=== PATIENT | female | born 1950 | race Caucasian/White ===

== ENCOUNTER 2017-09-10 09:13 | Emergency (ER) | payer MEDICARE ==
--- OUTSIDE RECORDS SUMMARY | 2017-09-10 09:23 | XMS REPORT ---
:1950 External Reference #:[id number] Author Organization [facility] Address [address] [address] Phone [phone] Care Team Providers Name Role Phone Jigar Ivey MD Primary Care Physician Unavailable Payers Type Date Identification Numbers Payment Provider Subscriber Medicare Primary Effective: Policy Number: Medicare Cristiana Ramsey 2014 [id number] PayID: [id number] [address] [place] [address] Medigap Part B Effective: Policy Number: [facility] Cristiana Ramsey 2014 [id number] Healthcare PayID: [id number] [address] [place] [address] Medigap Part B Effective: Policy Number: [facility] Junie Clark 2012 [id number] Ppo Expires: 2013 PayID: [id number] [address] [address] [place] [address] Medigap Part B Expires: 2012 Policy Number: [facility] Cristiana Ramsey [id number] Care ([place]) PayID: [id number] [address] [place] [address] Medigap Part B Expires: Policy Number: [facility] Cristiana Ramsey 2012 [id number] [facility] Name: Medicare [address] [address] [place] [address] Advance Directives Type Date Description Status Comment Other Directive Health Care Proxy Current and Verified Problems Date Description Provider Status Onset: 04/30/2007 Osteoporosis Jose Ryan M.D.,FACP Onset: 04/30/2007 Heart murmur Jose Ryan M.D.,FACP Onset: 04/30/2007 Idiopathic scoliosis AND/OR Jose Ryan kyphoscoliosis Nicolas,FACP Onset: 04/30/2007 Female climacteric state Jose Ryan M.D.,FACP Onset: 10/23/2015 Lumbosacral radiculitis Jose Ryan M.D.,NIGELP Note: L4-5 Onset: 09/27/2016 Mixed hyperlipidemia Jose Ryan M.D.,FACP Onset: 09/27/2016 Monoclonal gammopathy of Jose Ryan uncertain significance Nicolas,NIGELP Family History Date Family Member(s) Problem(s) Comments General Stroke General Cancer General Heart Disease Father due to Cancer () - head/neck Mother Cancer, Lung Mother due to Cancer, Lung () First Brother Heart Disease First Sister Osteoporosis Social History Type Date Description Comments Marital Status Significant Other Occupation Parer Occupation Retired Cigarette Use Never Smoked Cigarettes ETOH Use 02/20/2015 consumes 2-3 glasses of wine per week Recreational Drug Use Denies Drug Use Smoking Patient has never smoked General Hx Text none Allergies, Adverse Reactions, Alerts Date Description Reaction Status Severity Comments 02/05/2008 Codeine active cry 02/14/2017 Fosamax active palpitation/esophagitis Medications Medication Date Status Form Strength Qnty SIG Indications Ordering Provider Vitamin D 02/04/ Active Capsules 400Unit 1 PO bid Jigar Ivey M.D.,FACP Centrum / Active Tablets once daily Unknown Silver Ultra 0000 Womens Vitamin B / Active Tablets 1month follow Unknown Complex 0000 ss directions on bottle, take daily. (minimum of 50 mg of thiamine per day) Flax Seed Oil / Active Capsules 1000mg 1 po qd Unknown 0000 Acidophilus / Active Tablets 1 by mouth Unknown 0000 every day Vitamin C / Active Capsules 500mg 1 by mouth Unknown 0000 every day Calcium + D / Active Tablets 315-200mg- 2 by mouth Unknown 0000 Unit every day Glucosamine / Active Capsules 1500Com 1 by mouth Unknown 1500 Complex 0000 daily.. Glucosamine 10/22/ Hx Capsules 500mg 1 cap by Jigar Dunaway 2015 - mouth every D. Loni, 08/29/ day M.D.,FACP 2018 Doxycycline 10/22/ Hx Capsules 100mg 42caps si bid x 088.81 Mark- David Monohydrate 2014 - 21 days Valeria Ivey, 10/22/ M.D.,FACP 2014 Miralax 03/14/ Hx Powder [id number] 238G 1 cap full 564.09 Iman 2013 - po qd prn, Simba, 09/19/ dissolve in N.P. 2014 4-8 oz of liquid Doxycycline 10/31/ Hx Tablets 100mg 20tabs take one tab E906.4 Negrita Monohydrate 2013 - po bid x 10 [place] 10/31/ days tson, N.P. 2012 Doxycycline 10/31/ Hx Capsules 100mg 20caps take one E906.4 Negrita Hyclate 2013 - pill twice [facility] 03/14/ daily for 10 tson, N.P. 2012 days Alendronate 11/12/ Hx Tablets 70mg 12tabs 1 po weekly 733.00 Jigar Sodium 2010 - DOrly Ievy, 10/31/ M.D.,FACP 2012 Debrox 10/28/ Hx Solution 6.5% 1bottl 5 drops in 380.4 Jigar 2010 - e each ear DOrly Ivey, 12/21/ every 3 M.D.,FACP 2010 months Calcium 600 02/04/ Hx Tablets 600mg 1 PO bid Jigar 2007 Violeta Ivey, 09/06/ M.D.,FACP 2017 Glucosamine-C 02/04/ Hx Capsules 500-400 bid PO Jigar abad 2007 Violeta Ivey, 10/22/ M.D.,FACP 2014 Vitamin E / Hx Capsules 200Unit 1 po qod Unknown 0000 - 2014 Immunizations CPT Code Status Date Vaccine Lot # [id number] Given 02/14/2017 Pneumonia Vaccine [id number] 48814 Given 09/19/2014 Pneumococcal Conjugate Vaccine 13 Valent For [id number] Intramuscular Use 14758 Given 02/21/2012 Tdap - Tetanus/Diptheria/Acellular Pertussis [id number] Vital Signs Date Vital Result Comment 09/06/2017 Height 61 inches 5'1" Weight 125.00 lb Heart Rate 74 /min BP Systolic 116 mmHg BP Diastolic 74 mmHg Respiratory Rate 16 /min BMI (Body Mass Index) 23.6 kg/m2 04/20/2017 Weight 128.00 lb Heart Rate 75 /min BP Systolic Sitting 142 mmHg BP Diastolic Sitting 80 mmHg Body Temperature 96.4 F O2 % BldC Oximetry 97 % 02/14/2017 Height 61 inches 5'1" Weight 125.75 lb Heart Rate 67 /min BP Systolic Sitting 130 mmHg BP Diastolic Sitting 70 mmHg Body Temperature 97.6 F O2 % BldC Oximetry 98 % BMI (Body Mass Index) 23.8 kg/m2 09/27/2016 Weight 126.00 lb Heart Rate 75 /min BP Systolic 124 mmHg BP Diastolic 68 mmHg Body Temperature 98.0 F O2 % BldC Oximetry 96 % 06/17/2016 Weight 123.25 lb Heart Rate 72 /min BP Systolic Sitting 128 mmHg BP Diastolic Sitting 74 mmHg Body Temperature 97.6 F O2 % BldC Oximetry 98 % 10/23/2015 Height 60.5 inches 5'0.50" Weight 129.00 lb Heart Rate 60 /min BP Systolic Sitting 120 mmHg BP Diastolic Sitting 76 mmHg Body Temperature 97.6 F O2 % BldC Oximetry 98 % BMI (Body Mass Index) 24.8 kg/m2 02/20/2015 Height 61.25 inches 5'1.25" Weight 130.00 lb Heart Rate 60 /min BP Systolic Sitting 130 mmHg BP Diastolic Sitting 73 mmHg Body Temperature 97.5 F O2 % BldC Oximetry 98 % BMI (Body Mass Index) 24.4 kg/m2 10/22/2014 Height 61.25 inches 5'1.25" Weight 126.50 lb Heart Rate 80 /min BP Systolic Sitting 108 mmHg BP Diastolic Sitting 72 mmHg Body Temperature 97.7 F O2 % BldC Oximetry 96 % BMI (Body Mass Index) 23.7 kg/m2 09/19/2014 Height 61.25 inches 5'1.25" Weight 129.00 lb Heart Rate 74 /min BP Systolic Sitting 122 mmHg BP Diastolic Sitting 68 mmHg O2 % BldC Oximetry 96 % BMI (Body Mass Index) 24.2 kg/m2 03/14/2013 Height 61.25 inches 5'1.25" Weight 128.50 lb Heart Rate 72 /min BP Systolic Sitting 124 mmHg BP Diastolic Sitting 68 mmHg Body Temperature 98.8 F BMI (Body Mass Index) 24.1 kg/m2 10/31/2012 Height 61.25 inches 5'1.25" Weight 130.75 lb Heart Rate 76 /min BP Systolic Sitting 132 mmHg BP Diastolic Sitting 76 mmHg BMI (Body Mass Index) 24.5 kg/m2 01/20/2012 Weight 126.00 lb Heart Rate 68 /min BP Systolic Sitting 130 mmHg BP Diastolic Sitting 82 mmHg Body Temperature 97.5 F lt ear 11/12/2010 Weight 129.00 lb Heart Rate 64 /min BP Systolic Sitting 122 mmHg BP Diastolic Sitting 72 mmHg 10/28/2010 Weight 131.00 lb Heart Rate 70 /min BP Systolic Sitting 124 mmHg BP Diastolic Sitting 82 mmHg 02/05/2008 Height 62 inches 5'2" Weight 131.00 lb Heart Rate 60 /min BP Systolic Sitting 126 mmHg BP Diastolic Sitting 68 mmHg BMI (Body Mass Index) 24.0 kg/m2 04/30/2007 Height 62 inches 5'2" Weight 127.00 lb Heart Rate 70 /min BP Systolic Sitting 132 mmHg BP Diastolic Sitting 80 mmHg BMI (Body Mass Index) 23.2 kg/m2 Results Test Date Test Result H/L Range Note Comp Metabolic Panel 10/03/2016 Sodium 139 mmol/L 133-145 Potassium 3.7 mmol/L 3.5-5.0 Chloride 103 mmol/L 101-111 Co2 Carbon Dioxide 29 mmol/L 22-32 Anion Gap 7 mmol/L 2-11 Glucose 95 mg/dL 70-100 Blood Urea Nitrogen 15 mg/dL 6-24 Creatinine 0.61 mg/dL 0.51-0.95 BUN/Creatinine Ratio 24.6 High 8-20 Calcium 9.1 mg/dL 8.6-10.3 Total Protein 6.8 g/dL 6.4-8.9 Albumin 3.8 g/dL 3.2-5.2 Globulin 3.0 g/dL 2-4 Albumin/Globulin Ratio 1.3 1-3 Total Bilirubin 0.40 mg/dL 0.2-1.0 Alkaline Phosphatase 64 U/L 34-104 Alt 16 U/L 7-52 Ast 23 U/L 13-39 Egfr Non- 97.8 >60 Egfr 125.8 >60 1 Lipid Profile (Trig/Chol/HDL) 10/03/2016 Triglycerides 103 mg/dL 2 Cholesterol 241 mg/dL 3 HDL Cholesterol 66.3 mg/dL 4 LDL Cholesterol 154 mg/dL 5 Protein Electrophoresis 10/03/2016 Total Protein(Pep) 7.2 g/dL 6.3 - 7.9 Albumin 3.2 g/dL 3.4-4.7 Alpha-1 Globulin 0.2 g/dL 0.1-0.3 Alpha-2 Globulin 1.1 g/dL 0.6-1.0 Beta Globulin 1.0 g/dL 0.7-1.2 Gamma Globulin 1.7 g/dL 0.6-1.6 Albumin/Globulin Ratio 0.80 Impression See Comment 6 Laboratory test finding 10/03/2016 TSH (Thyroid Stim Horm) 3.00 mcIU/mL 0.34-5.60 7 CBC Auto Diff 10/03/2016 White Blood Count 5.2 10^3/uL 3.5-10.8 Red Blood Count 4.71 10^6/uL 4.0-5.4 Hemoglobin 13.7 g/dL 12.0-16.0 Hematocrit 41 % 35-47 Mean Corpuscular Volume 87 fL 80-97 Mean Corpuscular Hemoglobin 29 pg 27-31 Mean Corpuscular HGB Conc 34 g/dL 31-36 Red Cell Distribution Width 13 % 10.5-15 Platelet Count 259 10^3/uL 150-450 Mean Platelet Volume 8 um3 7.4-10.4 Abs Neutrophils 2.5 10^3/uL 1.5-7.7 Abs Lymphocytes 2.2 10^3/uL 1.0-4.8 Abs Monocytes 0.4 10^3/uL 0-0.8 Abs Eosinophils 0 10^3/uL 0-0.6 Abs Basophils 0 10^3/uL 0-0.2 Abs Nucleated RBC 0 10^3/uL Granulocyte % 49.3 % 38-83 Lymphocyte % 41.9 % 25-47 Monocyte % 7.5 % 1-9 Eosinophil % 0.7 % 0-6 Basophil % 0.6 % 0-2 Nucleated Red Blood Cells % 0 Laboratory test finding 02/23/2015 [place] (Antinuclear Negative Negative Antibodies) Protein Electrophoresis 02/23/2015 Immunofixation See Comment 8 Total Protein(Pep) 7.1 g/dL 6.3 - 7.9 Albumin 3.4 g/dL 3.4-4.7 Alpha-1 Globulin 0.2 g/dL 0.1-0.3 Alpha-2 Globulin 1.0 g/dL 0.6-1.0 Beta Globulin 1.1 g/dL 0.7-1.2 Gamma Globulin 1.4 g/dL 0.6-1.6 Albumin/Globulin Ratio 0.92 Impression See Comment 9 Laboratory test finding 02/23/2015 Vitamin B12 786 pg/mL 180-914 10 Erythrocyte Sed Rate 22 mm/Hr 0-40 Methylmalonic Acid Mma 0.24 nmol/mL <=0.40 11 Laboratory test finding 10/22/2014 Lyme Disease Serology Negative Negative 12 Lipid Profile 10/15/2014 Triglycerides 144 mg/dL 13, 14 (Trig/Chol/HDL) Cholesterol 212 mg/dL 13, 15 HDL Cholesterol 52.6 mg/dL 13, 16 LDL Cholesterol 131 mg/dL 13, 17 Comp Metabolic Panel 10/15/2014 Sodium 139 mmol/L 133-145 13 Potassium 4.3 mmol/L 3.5-5.0 13 Chloride 103 mmol/L 101-111 13 Co2 Carbon Dioxide 32 mmol/L 22-32 13 Anion Gap 4 mmol/L 2-11 13 Glucose 77 mg/dL 70-100 13 Blood Urea Nitrogen 9 mg/dL 6-24 13 Creatinine 0.52 mg/dL 0.51-0.95 13 BUN/Creatinine Ratio 17.3 8-20 13 Calcium 9.1 mg/dL 8.6-10.3 13 Total Protein 6.8 g/dL 6.4-8.9 13 Albumin 4.0 g/dL 3.2-5.2 13 Globulin 2.8 g/dL 2-4 13 Albumin/Globulin Ratio 1.4 1-3 13 Total Bilirubin 0.30 mg/dL 0.2-1.0 13 Alkaline Phosphatase 51 U/L 34-104 13 Alt 13 U/L 7-52 13 Ast 17 U/L 13-39 13 Egfr Non- 118.3 >60 13 Egfr 152.2 >60 13, 18 Laboratory test finding 10/15/2014 Vitamin D Total 41.2 ng/mL 30-50 13, 19 25(Oh) CBC Auto Diff 10/15/2014 White Blood Count 4.9 10^3/uL 4.8-10.8 13 Red Blood Count 4.58 10^6/uL 4.0-5.4 13 Hemoglobin 13.8 g/dL 12.0-16.0 13 Hematocrit 41 % 35-47 13 Mean Corpuscular Volume 91 fL 80-97 13 Mean Corpuscular Hemoglobin 30 pg 27-31 13 Mean Corpuscular HGB Conc 33 g/dL 31-36 13 Red Cell Distribution Width 14 % 10.5-15 13 Platelet Count 273 10^3/uL 150-450 13 Mean Platelet Volume 9 um3 7.4-10.4 13 Abs Neutrophils 2.4 10^3/uL 1.5-7.7 13 Abs Lymphocytes 1.9 10^3/uL 1.0-4.8 13 Abs Monocytes 0.4 10^3/uL 0-0.8 13 Abs Eosinophils 0 10^3/uL 0-0.6 13 Abs Basophils 0 10^3/uL 0-0.2 13 Abs Nucleated RBC 0 10^3/uL 13 Granulocyte % 50.1 % 38-83 13 Lymphocyte % 39.5 % 25-47 13 Monocyte % 9.1 % High 1-9 13 Eosinophil % 0.9 % 0-6 13 Basophil % 0.4 % 0-2 13 Nucleated Red Blood Cells % 0 13 Human Papilloma 03/15/2013 Human Papillomavirus Source See Comment 20 Human Papillomavirus High Risk Negative Negative 21 Ua Routine 03/14/2013 Ua Specific [place] 1.005 Ua PH 6.0 Ua Color yellow Ua Appera clear Ua WBC neg Ua Protein neg Ua Glucose neg Ua Ketones neg Ua Bilirubin neg Ua Urobilinogen neg Ua Nitrite neg Ua Occult Blood moderate Urine Culture And 03/14/2013 Urine Culture (SEE NOTE) 22 Sensitivities Laboratory test finding 03/14/2013 Cytology RUN DATE: <SEE NOTE> Surgical Pathology 11/23/2012 S RUN DATE: <SEE NOTE> Laboratory test finding 02/21/2012 Glucose 76 mg/dL 70-100 Lipid Profile 02/21/2012 Triglyceride 197 mg/dL 40-200 (Trig/Chol/HDL) Cholesterol 242 mg/dL High Less Than 200 25 High Density Lipoprotein 56 mg/dL 40-60 26 Cholesterol/HDL Ratio 4.32 AVERAGE 1-4.44 Low Density Lipoprotein 147 mg/dL High Less Than 100 27 Vitamin D, 25 Hydroxy 11/02/2010 25-Hydroxy Vitamin D2 <4.0 ng/mL () 25-Hydroxy Vitamin D3 43 ng/mL () 25-Hydroxy Vitamin D Total 43 ng/mL () 28 Lipid Profile (Trig/Chol/HDL) 11/02/2010 Triglyceride 107 mg/dL 40-200 Cholesterol 241 mg/dL High Less Than 200 29 High Density Lipoprotein 53 mg/dL 40-60 30 Cholesterol/HDL Ratio 4.55 AVERAGE High 1-4.44 Low Density Lipoprotein 167 mg/dL High Less Than 100 31 Basic Metabolic Panel 11/02/2010 Sodium 139 mmol/L 135-145 Potassium 4.3 mmol/L 3.5-5.0 Chloride 103 mmol/L 101-111 Co2 (Carbon Dioxide) 30.0 mmol/L 22-32 Anion Gap 6.0 mmol/L 2-11 32 Glucose 82 mg/dL 70-100 BUN 11 mg/dL 6-24 Creatinine 0.50 mg/dL 0.50-1.40 One Over Creatinine 2.00 BUN/Creatinine Ratio 22.0 High 8-20 Calcium 9.0 mg/dL 8.1-9.9 eGFR Non- 125.4 > 60 eGFR 161.3 > 60 33 Laboratory test 10/28/2010 Cytology 34 finding <SEE NOTE> Vad 10/28/2010 Vad Final NONREACTIVE Nonreactive 35 Laboratory test 04/03/2007 Vitamin D, 25 33.3 NG/ML 20-100 36 finding Hydroxy Laboratory test 04/03/2007 TSH 1.33 MIU/ML 0.34-5.60 finding 1 Because ethnic data is not always readily available, this report includes an eGFR for both -Americans and non- Americans. The National Kidney Disease Education Program (NKDEP) does not endorse the use of the MDRD equation for patients that are not between the ages of 18 and 70, are , have extremes of body size, muscle mass, or nutritional status, or are non- or non-. According to the National Kidney Foundation, irrespective of diagnosis, the stage of the disease is based on the level of kidney function: Stage Description GFR(mL/min/1.73 m(2)) 1 Kidney damage with normal or decreased GFR 90 2 Kidney damage with mild decrease in GFR 60-89 3 Moderate decrease in GFR 30-59 4 Severe decrease in GFR 15-29 5 Kidney failure <15 (or dialysis) 2 Desirable <150 Borderline high 150-199 High 200-499 Very High >500 3 Desirable <200 Borderline high 200-239 High >239 4 Low <40 Desirable: 40-60 High: >60 5 Desirable: <100 mg/dL Near Optimal: 100-129 mg/dL Borderline High: 130-159 mg/dL High: 160-189 mg/dL Very High: >189 mg/dL 6 Small abnormality in gamma fraction. Polyclonal hypergammaglobulinemia Test Performed by: [place] [address] 7 FASTING 10 HOUR 8 Small monoclonal IgG kappa within the gamma fraction. Suggest repeat testing in 6-12 months if clinically indicated. Test Performed by: [place] [address] Chuck Wagon Driver: Ritchie Dennison II, M.D., Ph.D. 9 Small abnormality in gamma fraction. See Immunofixation. Test Performed by: [place] [address] [employer] Wagon Driver: Ritchie Dennison II, M.D., Ph.D. 10 Normal Range 180 to 914 Indeterminate Range 145 to 180 Deficient Range <145 11 Test Performed by: [place] [address] [employer] Wagon Driver: Ritchie Dennison II, M.D., Ph.D. 12 Serologic response to B. burgdorferi infection is not detected, but cannot rule out early infection during which low or undetectable antibody levels to B. burgdorferi may be present. If clinically indicated, a new serum specimen should be submitted in 7-14 days. Test Performed by: [address] [address] Chuck Wagon Driver: Ritchie Dennison II, M.D., Ph.D. 13 FA STING 10 HOUR FASTING 10 HOUR FASTING 10 HOUR FASTING 10 HOUR FASTING 10 HOUR FASTING 10 HOUR FASTING 10 HOUR 14 Desirable <150 Borderline high 150-199 High 200-499 Very High >500 15 Desirable <200 Borderline high 200-239 High >239 16 Low <40 Desirable: 40-60 High: >60 17 Desirable: <100 mg/dL Near Optimal: 100-129 mg/dL Borderline High: 130-159 mg/dL High: 160-189 mg/dL Very High: >189 mg/dL 18 Because ethnic data is not always readily available, this report includes an eGFR for both -Americans and non- Americans. The National Kidney Disease Education Program (NKDEP) does not endorse the use of the MDRD equation for patients that are not between the ages of 18 and 70, are , have extremes of body size, muscle mass, or nutritional status, or are non- or non-. According to the National Kidney Foundation, irrespective of diagnosis, the stage of the disease is based on the level of kidney function: Stage Description GFR(mL/min/1.73 m(2)) 1 Kidney damage with normal or decreased GFR 90 2 Kidney damage with mild decrease in GFR 60-89 3 Moderate decrease in GFR 30-59 4 Severe decrease in GFR 15-29 5 Kidney failure <15 (or dialysis) 19 FASTING 10 HOUR 20 RESULT: Ectocervical/Endocervical 21 For types 16, 18, 31, 33, 35, 39, 45, 51, 52, 56, 58, 59 and 68. Test Performed by: [place] [address] Chuck Wagon Driver: Alvarez Recinos III, M.D. 22 RUN DATE: 03/16/13 [facility] LAB LIVE PAGE 1 RUN TIME: [address] [place], [place] [address] Specimen Inquiry Name: CRISTIANA RAMSEY : [address]: Iman Cottrell NP Acct: [id number] Unit: [id number] AGE: 63 Location: [facility] Re03/14/13 SEX: F Status: REG REF SPEC: [id number] DOMI: 03/14/13-[address]: Iman Cottrell NP REQ: [id number] RECD: 03/14/13 STATUS: COMP _ SOURCE: URINE SPDESC: ORDERED: Urine Culture QUERIES: [facility] Number [id number] Procedure Result Verified Site Urine Culture Final 03/16/13- 1046 ML No Growth Day 2 (<1,000 CFU/mL) END OF REPORT * ML=Testing performed at Main Lab DEPARTMENT OF PATHOLOGY, [address] [place] [address] Royce Escamilla M.D. Director [facility] Permit #[id number] RUN DATE: 03/15/13 [facility] LAB LIVE PAGE 1 RUN TIME: [address] [place], [place] [address] Specimen Inquiry Name: HAMMADCRISTIANA E : [address]: Iman Cottrell NP Acct: [id number] Unit: [id number] AGE: 63 Location: [facility] Re03/14/13 SEX: F Status: REG REF SPEC: [id number] DOMI: 03/14/13-1607 [facility] DR: Iman Cottrell NP REQ: [id number] RECD: 03/14/13090 STATUS: SOUT _ ORDERED: IMAGE ANALYSIS, PAP SM PATH REV, HPV/Thin Prep FINAL DIAGNOSIS Please Repeat COMMENTS: Specimen sent to [facility] [employer] in [place], [place] on 03/15/13 by [id number] at 1413. Results will be reported separately. A. Ectocervical/Endocervical Specimen Adequacy: Unsatisfactory for evaluation Insufficient epithelial component Patient Information: HPV: High risk HPV DNA testing regardless of pap results. Actual Specimen Date: 03/14/13 IUD: N Lesion, grossly demonstrate: N ?: N Post Menopausal?: Y Hysterectomy?: N Previous Abnormal Pap Smears?:N Signed (signature on file) Hui Shaw MD 09/22 1714 This Pap test was evaluated with the assistance of the ThinPrep Test Imaging System. Due to cytologic findings at the roads and parking lots sweeper operator microscope, comprehensive manual rescreening by a Principal Software Engineer may be required. The Pap Smear is a screening test designed to aid in the detection of premalignant and malignant conditions of the uterine cervix. It is not a diagnostic procedure and should not be used as the sole means of detecting cervical cancer. Both false- positive and false- negative reports do occur. Depending on your risk status, a Pap smear shoudl be obtained and evaluated every 1-3 years. END OF REPORT * ML=Testing performed at Main Lab DEPARTMENT OF PATHOLOGY, [facility] [place], [place] [address] Royce Escamilla M.D. Director [facility] Permit #[id number] RUN DATE: 11/27/12 [facility] LAB LIVE PAGE 1 RUN TIME: 2960 [facility] [employer] [place], [place] [address] Specimen Inquiry Name: CRISTIANA RAMSEY : [address]: Camilo Mclean MD Acct: [id number] Unit: [id number] AGE: 62 Location: [facility] Re11/23/12 SEX: F Status: REG REF SPEC: [id number] DOMI: 11/23/12- SUBM DR: Camilo Mclean MD REQ: [id number] RECD: 11/26/12-1444 STATUS: SHAYE ORTIZ DR: Jigar Ivey MD _ ORDERED: LEVEL IV FINAL DIAGNOSIS Colon, 20 cm., biopsy: Hyperplastic polyp. CLINICAL HISTORY Routine screening colonscopy POST-OPERATIVE DIAGNOSIS Screening colonoscopy to mid transverse colon - mild diverticulosis, 2 mm. polyp removed at 20 cm. GROSS DESCRIPTION The specimen is received in formalin labeled Cristiana Ramsey, Colon Polyp at 20 cm., and consists of hamilton, soft tissue fragments measuring 0.5 x0.3 x 0.1 cm. Submitted entirely, one cassette. Signed (signature on file) Royce Escamilla MD 1354 END OF REPORT * ML=Testing performed at Main Lab DEPARTMENT OF PATHOLOGY, [address] [place] [address] Royce Escamilla M.D. Director [facility] Permit #[id number] 25 CHOLESTEROL INTERPRETATION: Desirable: Less than 200 MG/DL Borderline-High Risk: 200-239 MG/DL High-Risk: 240 MG/DL and over 26 HDL INTERPRETATION: Undesirable: High Risk: Less than 40 MG/DL Desirable: Low Risk: Greater than 60 MG/DL 27 LDL INTERPRETATION: Low Risk Optimal Level: LDL Less than 100 MG/DL Near or Above Optimal: LDL 100-129 MG/DL Borderline High Risk: LDL 130-159 MG/DL High Risk: LDL 160-189 MG/DL Very High Risk: LDL Greater than 189 MG/DL 28 -- REFERENCE VALUE -- 25-HYDROXY D TOTAL (D2+D3) Optimum levels in the normal population are 25-80 Test Performed by: [facility] Dpt of Lab Med and Pathology [address] [place] [address] Chuck Wagon Driver: Alvarez Recinos III, M.D. 29 CHOLESTEROL INTERPRETATION: Desirable: Less than 200 MG/DL Borderline-High Risk: 200-239 MG/DL High-Risk: 240 MG/DL and over 30 HDL INTERPRETATION: Undesirable: High Risk: Less than 40 MG/DL Desirable: Low Risk: Greater than 60 MG/DL 31 LDL INTERPRETATION: Low Risk Optimal Level: LDL Less than 100 MG/DL Near or Above Optimal: LDL 100-129 MG/DL Borderline High Risk: LDL 130-159 MG/DL High Risk: LDL 160-189 MG/DL Very High Risk: LDL Greater than 189 MG/DL 32 Anion gap measurement may be of limited value in the presence of any alkalosis, especially in a combined acid base disorder. . 33 Because ethnic data is not always readily available, this report includes an eGFR for both -Americans and non- Americans. The National Kidney Disease Education Program (NKDEP) does not endorse the use of the MDRD equation for patients that are not between the ages of 18 and 70, are , have extremes of body size, muscle mass, or nutritional status, or are non- or non-. According to the National Kidney Foundation, irrespective of diagnosis, the stage of the disease is based on the level of kidney function: Stage Description GFR(mL/min/1.73 m(2)) 1 Kidney damage with normal or decreased GFR 90 2 Kidney damage with mild decrease in GFR 60-89 3 Moderate decrease in GFR 30-59 4 Severe decrease in GFR 15-29 5 Kidney failure <15 (or dialysis) 34 ---- RUN DATE: 10/29/10 [facility] NMI LIVE PAGE 1 RUN TIME: 1547 Specimen Inquiry RUN USER: INTERFACE -- Name: CRISTIANA RAMSEY Status: REG REF Re10/28/10 Age/Sex: 60/F Unit#: [id number] Location: [facility] : [birth year] -- Specimen: [id number] SOUT Spec Date: 10/28/[address]: Iman shipman NP Spec Type: CYTOLOGY Received: 10/29/10-1250 Copies to: SOURCE ECTOCERVICAL/ENDOCERVICAL Thin Prep with Reflex HPV Test PATIENT INFORMATION ACTUAL COLLECTION DATE: 10/28/10 ? No POST MENOPAUSAL? Yes HYSTERECTOMY? No PREVIOUS ABNORMAL PAP SMEARS No PATIENT HISTORY: Last menstrual period > 11 yrs ago ADEQUACY OF SPECIMEN Satisfactory for evaluation * Transformation zone component cannot be definitely identified due to prese nce * of atrophy or other hormonal changes. * DIAGNOSIS NEGATIVE FOR INTRAEPITHELIAL LESION OR MALIGNANCY * This Pap test was evaluated with the assistance of the StudyBluePrep Pap Test Imaging System. The Pap Smear is a screening test designed to aid in the detection of premalign ant and malignant conditions of the uterine cervix. It is not a diagnostic procedure a nd should not be used as the sole means of detecting cervical cancer. Both false- positiv e and false-negative reports do occur. Depending on your risk status, a Pap smear cris uld be obtained and evaluated every one to three years. Initial evaluation performed by González BENNETT([facility]) 10/29/10 Final Interpretation electronically signed by: González BENNETT([facility]) 10/29/10 1547 -- DEPARTMENT OF PATHOLOGY, [address] [place] [address] [facility] Permit #[id number] Royce Escamilla M.D. Director Neil Hunter M.D. Sales Representative [employer] Dir spike -- 35 FINAL INTERPRETATION: No HIV antibody is detected. . This information has been disclosed to you from confidential records which are protected by [facility] law. State law prohibits you from making further disclosure of this information without the specific written consent of the person to whom it pertains, or as otherwise permitted by law. Any unauthorized further disclosure in violation of state law may result in a fine or snf sentence or both. General authorization for the release of medical or other information is not, except in limited circumstances set forth in Part 63, Title 10, of [facility], sufficient authorization for further disclosure. Disclosure of confidential HIV information that occurs as the result of a general authorization for the release of medical or other information will be in violation of the state law and may result in a fine or a snf sentence. . 36 INTERPRETIVE GUIDELINES FOR VITAMIN D (25-HYDROXY): >100 NG/ML (>250 NMOL/L) . . . POTENTIAL TOXICITY 32-100 NG/ML (80-250 NMOL/L) . SUFFICIENCY 20-32 NG/ML (50-80 NMOL/L) . . MILD INSUFFICIENCY 10-20 NG/ML (25-50 NMOL/L) . . MODERATE INSUFFICIENCY 7-10 NG/ML (17.5-25 NMOL/L) . MARKED INSUFFICIENCY <7 NG/ML (<17.5 NMOL/L) . . . DEFICIENCY NOTE: RANGES OBSERVED IN SELECTED POPULATIONS VARY CONSIDERABLY AND A SIGNIFICANT PORTION OF ASYMPTOMATIC PERSONS, PARTICULARLY ELDERLY AND THOSE WITH LIMITED SUN EXPOSURE WILL HAVE VITAMIN D INSUFFICIENCY ASSOCIATED WITH ELEVATED INTACT PARATHYROID HORMONE (INTACT PTH) LEVELS AND ELEVATED RISK OF OSTEOPOROSIS. SERUM LEVELS ABOVE 32 NG/ML (80 NMOL/L) HAVE BEEN RECOMMENDED FOR OPTIMIZING BONE HEALTH WHEREAS LEVELS BELOW 10 NG/ML (25 NMOL/L) ARE ASSOCIATED WITH A SIGNIFICANT RISK OF OSTEOMALACIA. TEST PERFORMED BY: [employer] [id number] [place] [address] NOTE: NEW REFERENCE RANGE OF 10/31/06 Procedures Date CPT Code Description Status 05/11/2017 08189 ECHO Transthorasic Realtime 2D W Doppler & Color Completed Flow Hosp 11/13/2015 Mammogram Completed 05/01/2015 44563 Nerve Conduction 03-04 Studies Completed 05/01/2015 26892 Needle Electromyography Each Extremity W/Related Completed Paraspinal Areas 10/08/2014 Bone Mineral Density Test Completed 10/08/2014 Mammogram Completed 05/13/2013 Mammogram Completed 11/23/2012 Colonoscopy Completed 11/04/2010 Bone Mineral Density Test Completed 11/04/2010 Mammogram Completed 04/29/2003 11932 Transesophageal Echocardiogram Completed 04/10/2003 33660 Stress Test Completed 04/09/2003 92613 Color Doppler Completed 04/09/2003 98970 Pulse Doppler & Continuous Wave Completed 04/09/2003 54357 Echocardiogram Completed Encounters Type Date Location Provider CPT E/M Dx Office Visit 09/06/2017 [facility] Mya Balderas M.D. 18299 R41.89 9:00a [facility] F41.9 R94.02 Office Visit 04/20/2017 1:40p [facility] Medicine Jigar Ivey, 93596 R41.3 - [place] Albert Valenzuela,FACP R01.1 Office Visit 02/14/2017 11:30a [facility] Medicine Jigar Ivey, 82365 Z00.01 - Anthony Valenzuela,FACP E78.2 M81.0 Z23 Office Visit 09/27/2016 4:40p [facility] Medicine Jigar Ivey, 81905 R53.83 - Anthony Valenzuela,FACP R41.3 D47.2 Office Visit 06/17/2016 4:20p [facility] Internal Jigar Ivey, 14449 M25.511 Medicine - [place] Albert Valenzuela,FACP H61.23 Office Visit 02/20/2015 8:40a [facility] Internal Jigar Ivey, 13003 356.8 Medicine - [place] Albert Valenzuela,FACP Office Visit 10/22/2014 10:10a [facility] Internal Jigar Ivey, 68430 088.81 Medicine - [place] Albert Valenzuela,FACP 733.00 Office Visit 03/14/2013 3:30p [facility] Internal Medicine Iman Cottrell, N.P. 51745 V76.10 - Cassandra 788.41 564.09 599.70 V72.31 V76.2 Office Visit 10/31/2012 2:00p [facility] Internal Negrita Littlejohn, 33550 E906.4 Medicine - N.P. Anthony 910.4 Office Visit 01/20/2012 4:30p [facility] Internal Medicine Iman Cottrell, N.P. 94080 V76.51 - Cassandra V77.91 V77.1 V06.1 719.48 Office Visit 11/12/2010 9:40a DO Not Use [facility], 41491 733.00 [facility] Nicolas,FACP Office Visit 10/28/2010 2:30p DO Not Use [facility], N.P. 54266 V76.2 [facility] V76.10 V76.51 V72.31 380.4 Office Visit 02/05/2008 10:00a DO Not Use [facility], 22778 840.4 [facility] BeaValeria,FACP 268.9 Office Visit 04/30/2007 3:40p DO Not Use [facility], 38987 733.00 [facility] 785.2 737.30 627.2 Plan of Care Future Appointment(s):04/27/2018 10:00 am - Mya Balderas M.D. at [facility]09/06/2017 - Mya Balderas M.D.R41.89 Oth symptoms and signs w cognitive functions and awarenessNew Xrays:MRI Brain W/ ORecommendations:Keep hydrated. Most people need 8 hours sleep. Watch to see if you need naps. Exercise is foss in preventing cognitive decline. Anxiety, PTSD can affect cognition. Highly suggest counseling. Socialization and volunteer work can be helpful. Agree to be careful to choose how you do this, so you do not increase stress. Pace yourself.F41.9 Anxiety disorder, pvjxqagrdtuS79.02 Abnormal brain scanNew Xrays:MRI Brain W/OComments:there is some atrophy (expected) and some nonspecific white matter changes - these can be caused risk factors including, but not limited to high cholesterol, high blood pressure, diabetes, smoking, sleep apnea. 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 (30 min)
[2017-09-10 09:24] VITALS: BP 112/64
--- NOTE | 2017-09-10 09:50 | UC ---
Complaint Female HPI - HPI Summary HPI Summary: Patient c/o intense itching in vulvar and vaginal area for close to a week, she used miconazale 3 and finished treatment 4 days ago but continues having pruritus. States that there was no vaginal discharge and that the only change was increased intake of bread in the past month. Denies sexual intercourse, changes in detergent or fabric of clothing, dysuria or abnormal urine or bleeding. Occasionally has mixed incontinence during the winter. - History Of Current Complaint Chief Complaint: UCGU Stated Complaint: VAGINAL IRRITATION Time Seen by Provider: 09/10/17 09:28 Pain Intensity: 0 - Allergies/Home Medications Allergies/Adverse Reactions: Allergies Allergy/AdvReac Type Severity Reaction Status Date / Time codeine Allergy unk Verified 09/10/17 09:15 PMH/Surg Hx/FS Hx/Imm Hx Previously Healthy: Yes - Surgical History Surgical History: Yes Surgery Procedure, Year, and Place: spinal fusion for scoliosis 1965. RIGHT SIDE OF HEAD ABOVE EAR TO REMOVE BONE GROWTH. - Social History Alcohol Use: Weekly Substance Use Type: None Smoking Status (MU): Never Smoked Tobacco Review of Systems Genitourinary: Vaginal/Penile Burning All Other Systems Reviewed And Are Negative: Yes Physical Exam Triage Information Reviewed: Yes Appearance: Well-Appearing, No Pain Distress, Well-Nourished Vital Signs: Initial Vital Signs Temp 98 F 09/10/17 09:21 Pulse 69 09/10/17 09:21 Resp 16 09/10/17 09:21 BP 112/64 09/10/17 09:21 Pulse Ox 100 09/10/17 09:21 Vital Signs Reviewed: Yes Eyes: Positive: Conjunctiva Clear Dental Exam: Normal Neck: Positive: Supple, Nontender Respiratory: Positive: Chest non-tender Cardiovascular: Positive: Pulses Normal, Brisk Capillary Refill Abdomen Description: Positive: Nontender, No Organomegaly, Soft Pelvic Exam: Positive: Bimanual Exam Normal, No Cerv. Motion Tender, No Masses - no vulvar lesions, no vaginal d/c, mucosa with mild atrophy, no cervical lesions, no CMT, adnexa non palpable, small uterus Complaint Female Dx - Course Course Of Treatment: continue miconazol cream every night, start diflucan 150mg po once, vaginal sample sent for laboratory analysis, limit amount of yeast in diet - Differential Dx/Diagnosis Provider Diagnoses: Hiwot vulvovaginitis Discharge - Sign-Out/Discharge Documenting (check all that apply): Discharge, Post-Discharge Follow Up - Discharge Plan Condition: Stable Disposition: HOME Patient Education Materials: Vaginitis (ED) Referrals: Jigar Ivey MD [Primary Care Provider] - - Billing Disposition and Condition Condition: STABLE Disposition: HOME
== END 2017-09-10 10:03 | disposition home or self-care (01) ==
LOC: UCEAST 09:13
DX: B37.3 Candidiasis of vulva and vagina (principal); Z88.5 Allergy status to narcotic agent
CPT/HCPCS: 87480; 87510; 87660; 99212; G0463

== ENCOUNTER 2017-12-12 19:55 | Emergency (ER) | payer MEDICARE ==
--- OUTSIDE RECORDS SUMMARY | 2017-12-12 20:04 | XMS REPORT ---
:1950 External Reference #:[id number] Author Organization [facility] Address [address] [place] [address] Phone [phone] Care Team Providers Name Role Phone Jigar Ivey MD Primary Care Physician Unavailable Payers Type Date Identification Numbers Payment Provider Subscriber Medicare Primary Effective: Policy Number: Medicare Cristiana Ramsey 2014 [id number] PayID: [id number] [address] [place] [address] Medigap Part B Effective: Policy Number: [place] Cristiana Ramsey 2014 [id number] Healthcare PayID: [id number] [address] [place] [address] Medigap Part B Effective: Policy Number: [place] Brenden Junie Clark 2012 [id number] Ppo Expires: 2013 PayID: [id number] [address] [address] [place] [address] Medigap Part B Expires: 2012 Policy Number: [facility] Cristiana Ramsey [id number] Care ([place]) PayID: [id number] [address] [place] [address] Medigap Part B Expires: Policy Number: [facility] Cristiana Ramsey 2012 [id number] [facility] Name: Medicare [address] [address] [place] [address] Advance Directives Type Date Description Status Comment Other Directive Health Care Proxy Current and Verified Problems Date Description Provider Status Onset: 04/30/2007 Heart murmur Jose Ryan M.D.,FACP Onset: 04/30/2007 Idiopathic scoliosis AND/OR Jigar Ivey Active kyphoscoliosis Nicolas,FACP Onset: 04/30/2007 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 Loni, 10/22/ M.D.,FACP 2014 Miralax 03/14/ Hx Powder [id number] 238G 1 cap full 564.09 Iman 2013 - po qd prn, Simba, 09/19/ dissolve in N.P. 2014 4-8 oz of liquid Doxycycline 10/31/ Hx Tablets 100mg 20tabs take one tab E906.4 Negrita Monohydrate 2013 - po bid x 10 [facility] 10/31/ days tson, N.P. 2012 Doxycycline 10/31/ Hx Capsules 100mg 20caps take one E906.4 Negrita Hyclate 2013 - pill twice [facility] 03/14/ daily for 10 tson, N.P. 2012 days Alendronate 11/12/ Hx Tablets 70mg 12tabs 1 po weekly 733.00 Jigar Sodium 2010 - Valeria Ivey, 10/31/ M.D.,FACP 2012 Debrox 10/28/ Hx Solution 6.5% 1bottl 5 drops in 380.4 Jigar 2010 - e each ear Valeria Ivey, 12/21/ every 3 M.D.,FACP 2010 months Calcium 600 02/04/ Hx Tablets 600mg 1 PO bid Jigar 2007 Violeta Ivey, 09/06/ M.D.,FACP 2017 Glucosamine-C 02/04/ Hx Capsules 500-400 bid PO Jigar abad 2007 Violeta Ivey, 10/22/ M.D.,FACP 2014 Vitamin E / Hx Capsules 200Unit 1 po qod Unknown 0000 - 2014 Immunizations CPT Code Status Date Vaccine Lot # [id number] Given 02/14/2017 Pneumonia Vaccine [id number] Given 09/19/2014 Pneumococcal Conjugate Vaccine 13 Valent For [id number] Intramuscular Use [id number] Given 02/21/2012 Tdap - Tetanus/Diptheria/Acellular Pertussis [id number] Vital Signs Date Vital Result Comment 12/11/2017 Height 61 inches 5'1" Weight 126.00 lb Heart Rate 75 /min BP Systolic Sitting 122 mmHg BP Diastolic Sitting 76 mmHg Body Temperature 98.4 F O2 % BldC Oximetry 95 % BMI (Body Mass Index) 23.8 kg/m2 09/06/2017 Height 61 inches 5'1" Weight 125.00 [...] Test Date Test Result H/L Range Note Laboratory test 10/06/2017 Surgical Pathology SEE RESULT BELOW 1, 2 finding Lipid Profile 10/02/2017 Triglycerides 128 mg/dL 3 (Trig/Chol/HDL) Cholesterol 248 mg/dL 4 HDL Cholesterol 56.7 mg/dL 5 LDL Cholesterol 166 mg/dL 6 Laboratory test 09/10/2017 Gardnerella/Yeast: Vaginal SEE RESULT 7, 8 finding Dna BELOW CBC Auto Diff 10/03/2016 White Blood Count [...] Blood Cells % 0 Laboratory test finding 10/03/2016 TSH (Thyroid Stim Horm) 3.00 mcIU/mL 0.34-5.60 9 Protein Electrophoresis 10/03/2016 Total Protein(Pep) 7.2 g/dL 6.3 - 7.9 Albumin 3.2 g/dL 3.4-4.7 Alpha-1 Globulin 0.2 g/dL 0.1-0.3 Alpha-2 Globulin 1.1 g/dL 0.6-1.0 Beta Globulin 1.0 g/dL 0.7-1.2 Gamma Globulin 1.7 g/dL 0.6-1.6 Albumin/Globulin Ratio 0.80 Impression See Comment 10 Lipid Profile (Trig/Chol/HDL) 10/03/2016 Triglycerides 103 mg/dL 11 Cholesterol 241 mg/dL 12 HDL Cholesterol 66.3 mg/dL 13 LDL Cholesterol 154 mg/dL 14 Comp Metabolic Panel 10/03/2016 Sodium 139 mmol/L [...] Egfr Non- 97.8 >60 Egfr 125.8 >60 15 Laboratory test finding 02/23/2015 Vitamin B12 786 pg/mL 180-914 16 Erythrocyte Sed Rate 22 mm/Hr 0-40 Methylmalonic Acid Mma 0.24 nmol/mL <=0.40 17 Protein Electrophoresis 02/23/2015 Immunofixation See Comment 18 Total Protein(Pep) 7.1 g/dL 6.3 - 7.9 Albumin 3.4 g/dL 3.4-4.7 Alpha-1 Globulin 0.2 g/dL 0.1-0.3 Alpha-2 Globulin 1.0 g/dL 0.6-1.0 Beta Globulin 1.1 g/dL 0.7-1.2 Gamma Globulin 1.4 g/dL 0.6-1.6 Albumin/Globulin Ratio 0.92 Impression See Comment 19 Laboratory test finding 02/23/2015 [place] (Antinuclear Negative Negative Antibodies) Laboratory test finding 10/22/2014 Lyme Disease Serology Negative Negative 20 Comp Metabolic Panel 10/15/2014 Sodium 139 mmol/L 133-145 21 Potassium 4.3 mmol/L 3.5-5.0 21 Chloride 103 mmol/L 101-111 21 Co2 Carbon Dioxide 32 mmol/L 22-32 21 Anion Gap 4 mmol/L 2-11 21 Glucose 77 mg/dL 70-100 21 Blood Urea Nitrogen 9 mg/dL 6-24 21 Creatinine 0.52 mg/dL 0.51-0.95 21 BUN/Creatinine Ratio 17.3 8-20 21 Calcium 9.1 mg/dL 8.6-10.3 21 Total Protein 6.8 g/dL 6.4-8.9 21 Albumin 4.0 g/dL 3.2-5.2 21 Globulin 2.8 g/dL 2-4 21 Albumin/Globulin Ratio 1.4 1-3 21 Total Bilirubin 0.30 mg/dL 0.2-1.0 21 Alkaline Phosphatase 51 U/L 34-104 21 Alt 13 U/L 7-52 21 Ast 17 U/L 13-39 21 Egfr Non- 118.3 >60 21 Egfr 152.2 >60 21, 22 Laboratory test finding 10/15/2014 Vitamin D Total 41.2 ng/mL 30-50 21, 23 25(Oh) CBC Auto Diff 10/15/2014 White Blood Count 4.9 10^3/uL 4.8-10.8 21 Red Blood Count 4.58 10^6/uL 4.0-5.4 21 Hemoglobin 13.8 g/dL 12.0-16.0 21 Hematocrit 41 % 35-47 21 Mean Corpuscular Volume 91 fL 80-97 21 Mean Corpuscular Hemoglobin 30 pg 27-31 21 Mean Corpuscular HGB Conc 33 g/dL 31-36 21 Red Cell Distribution Width 14 % 10.5-15 21 Platelet Count 273 10^3/uL 150-450 21 Mean Platelet Volume 9 um3 7.4-10.4 21 Abs Neutrophils 2.4 10^3/uL 1.5-7.7 21 Abs Lymphocytes 1.9 10^3/uL 1.0-4.8 21 Abs Monocytes 0.4 10^3/uL 0-0.8 21 Abs Eosinophils 0 10^3/uL 0-0.6 21 Abs Basophils 0 10^3/uL 0-0.2 21 Abs Nucleated RBC 0 10^3/uL 21 Granulocyte % 50.1 % 38-83 21 Lymphocyte % 39.5 % 25-47 21 Monocyte % 9.1 % High 1-9 21 Eosinophil % 0.9 % 0-6 21 Basophil % 0.4 % 0-2 21 Nucleated Red Blood Cells % 0 21 Lipid Profile (Trig/Chol/HDL) 10/15/2014 Triglycerides 144 mg/dL 21, 24 Cholesterol 212 mg/dL 21, 25 HDL Cholesterol 52.6 mg/dL 21, 26 LDL Cholesterol 131 mg/dL 21, 27 Human Papilloma 03/15/2013 Human Papillomavirus Source See Comment 28 Human Papillomavirus High Risk Negative Negative 29 Laboratory test finding 03/14/2013 Cytology RUN DATE: 03/15/ <SEE 30 NOTE> Ua Routine 03/14/2013 Ua Specific [place] 1.005 Ua PH 6.0 Ua Color yellow Ua Appera clear Ua WBC neg Ua Protein neg Ua Glucose neg Ua Ketones neg Ua Bilirubin neg Ua Urobilinogen neg Ua Nitrite neg Ua Occult Blood moderate Urine Culture And 03/14/2013 Urine Culture (SEE NOTE) 31 Sensitivities Surgical Pathology 11/23/2012 S RUN DATE: <SEE NOTE> Laboratory test finding 02/21/2012 Glucose 76 mg/dL 70-100 Lipid Profile 02/21/2012 Triglyceride 197 mg/dL 40-200 (Trig/Chol/HDL) Cholesterol 242 mg/dL High Less Than 200 33 High Density Lipoprotein 56 mg/dL 40-60 34 Cholesterol/HDL Ratio 4.32 AVERAGE 1-4.44 Low Density Lipoprotein 147 mg/dL High Less Than 100 35 Vitamin D, 25 Hydroxy 11/02/2010 25-Hydroxy Vitamin D2 <4.0 ng/mL () 25-Hydroxy Vitamin D3 43 ng/mL () 25-Hydroxy Vitamin D Total 43 ng/mL () 36 Lipid Profile (Trig/Chol/HDL) 11/02/2010 Triglyceride 107 mg/dL 40-200 Cholesterol 241 mg/dL High Less Than 200 37 High Density Lipoprotein 53 mg/dL 40-60 38 Cholesterol/HDL Ratio 4.55 AVERAGE High 1-4.44 Low Density Lipoprotein 167 mg/dL High Less Than 100 39 Basic Metabolic Panel 11/02/2010 Sodium 139 mmol/L 135-145 Potassium 4.3 mmol/L 3.5-5.0 Chloride 103 mmol/L 101-111 Co2 (Carbon Dioxide) 30.0 mmol/L 22-32 Anion Gap 6.0 mmol/L 2-11 40 Glucose 82 mg/dL 70-100 BUN 11 mg/dL 6-24 Creatinine 0.50 mg/dL 0.50-1.40 One Over Creatinine 2.00 BUN/Creatinine Ratio 22.0 High 8-20 Calcium 9.0 mg/dL 8.1-9.9 eGFR Non- 125.4 > 60 eGFR 161.3 > 60 41 Laboratory test 10/28/2010 Cytology <SEE 42 finding NOTE> Vad 10/28/2010 Vad Final NONREACTIVE Nonreactive 43 Laboratory test 04/03/2007 Vitamin D, 25 33.3 NG/ML 20-100 44 finding Hydroxy Laboratory test 04/03/2007 TSH 1.33 MIU/ML 0.34-5.60 finding 1 1142-A:Morphology: irregular brown macule;DDX: Dysplastic Nevus vs. Blue Nevus;Location: right ut 2 SEE RESULT BELOW Name: HAMMADCRISTIANA Jodi : [address]: Rohini Sharma MD Acct: [id number] Unit: [id number] AGE: 67 Location: [facility] Re10/06/17 SEX: F Status: REG REF SPEC: [id number] DOMI: 10/06/17-1413 [facility] DR: Rohini Sharma MD REQ: [id number] RECD: 10/06/17-171 STATUS: SHAYE ORTIZ DR: Jigar Ivey MD _ ORDERED: LEVEL 4 COMMENTS: [id number] FINAL DIAGNOSIS Skin, right medial ankle, biopsy: -- Blue nevus. -- The lesion is excised in the planes of sectioning examined. PRE-OPERATIVE DIAGNOSIS Irregular brown macule; dysplastic nevus vs blue nevus GROSS DESCRIPTION The specimen is received in formalin labeled, Right Medial Ankle, and consists of a 0.5 x 0.4 cm white skin punch excised to a depth of 0.2 cm with a central 0.2 x 0.1 cm dark brown-toledo dimpled area. The specimen is bisected and entirely submitted in one cassette. Signed (signature on file) Hui Shaw MD 0917 END OF REPORT DEPARTMENT OF PATHOLOGY, [address] [place] [address] Royce Escamilla M.D. Director [facility] # [id number] Desirable: <150 Borderline High: 150-199 High: 200-499 Very High: >500 4 Desirable: <200 Borderline High: 200-239 High: >239 5 Low: <40 Desirable: 40-60 High: >60 6 Desirable: <100 Near Optimal: 100-129 Borderline High: 130-159 High: 160-189 Very High: >189 7 [id number] Would you like to order Trichomonas Vaginalis RNA testing? Y 8 SEE RESULT BELOW Name: CRISTIANA RAMSEY : [address]: Lila Singh MD Acct: [id number] Unit: [id number] AGE: 67 Location: [facility] Re09/10/17 SEX: F Status: DEP ER SPEC: [id number] DOMI: 09/10/171000 SUBM DR: Lila Singh MD REQ: [id number] RECD: 09/10/17 STATUS: COMP [facility] DR: Jigar Ivey MD _ SOURCE: VAGINAL SPDESC: ORDERED: Christopher,Yeast DNA, Trich DNA COMMENTS: [id number] Would you like to order Trichomonas Vaginalis RNA testing? Y Procedure Result Reported Site Gardnerella/Yeast: Vaginal DNA Final 09/11/17- 1145 ML Organism 1 Negative Gardnerella Organism 2 Negative Hiwot The presence of G. vaginalis, although suggestive, is not diagnostic for bacterial vaginosis. Results should be interpreted in conjuction with other clinical and laboratory data available. Women with vaginal discharge should be evaluated for risk factors of cervicitis and pelvic inflammatory disease, toxic shock syndrome (S.aureus), and if present, evaluated for organisms not included in this assay such as N. gonorrhoeae, C. trachomatis, Mobiluncus, Mycoplasma and/or Prevotella. Mixed infections may occur. The performance of this test on patient specimens collected during or immediately after antimicrobial therapy is unknown. The presence or absence of Hiwot species, or G. vaginalis cannot be used as a test for therapeutic success or failure. Trichomonas: Vaginal DNA Probe Final 09/11/17- 1145 ML Organism 1 Negative Trichomonas CONTINUED ON NEXT PAGE DEPARTMENT OF PATHOLOGY, [address] [place] [address] Royce Escamilla M.D. Director [facility] # [id number] Patient: CRISTIANA RAMSEY [id number] (Continued) Specimen: [id number] Collected: 09/10/17 Received: 09/10/17 (Continued) Procedure Result Reported Site Trichomonas: Vaginal DNA Probe Final (continued) 09/11/17- 4898 The presence or absence of T. vaginalis cannot be used as a test for therapeutic success or failure. * - Main Lab . END OF REPORT DEPARTMENT OF PATHOLOGY, [address] [place] [address] Royce Escamilla M.D. Director [facility] # [id number] FASTING 10 HOUR 10 Small abnormality in gamma fraction. Polyclonal hypergammaglobulinemia Test Performed by: [address] [address] 11 Desirable <150 Borderline high 150-199 High 200-499 Very High >500 12 Desirable <200 Borderline high 200-239 High >239 13 Low <40 Desirable: 40-60 High: >60 14 Desirable: <100 mg/dL Near Optimal: 100-129 mg/dL Borderline High: 130-159 mg/dL High: 160-189 mg/dL Very High: >189 mg/dL 15 Because ethnic data is not always readily [...] 15-29 5 Kidney failure <15 (or dialysis) 16 Normal Range 180 to 914 Indeterminate Range 145 to 180 Deficient Range <145 17 Test Performed by: [address] [address] Forest Economics Professor: Ritchie Dennison II, M.D., Ph.D. 18 Small monoclonal IgG kappa within the gamma fraction. Suggest repeat testing in 6-12 months if clinically indicated. Test Performed by: [place] [address] Forest [employer] Professor: Ritchie Dennison II, M.D., Ph.D. 19 Small abnormality in gamma fraction. See Immunofixation. Test Performed by: [place] [address] Forest Economics Professor: Ritchie Dennison II, M.D., Ph.D. 20 Serologic response to B. burgdorferi infection is not detected, but cannot rule out early infection during which low or undetectable antibody levels to B. burgdorferi may be present. If clinically indicated, a new serum specimen should be submitted in 7-14 days. Test Performed by: [place] [address] [employer] Professor: Ritchie Dennison II, M.D., Ph.D. 21 FA STING 10 HOUR FASTING 10 HOUR FASTING 10 HOUR FASTING 10 HOUR FASTING 10 HOUR FASTING 10 HOUR FASTING 10 HOUR 22 Because ethnic data is not always readily [...] 15-29 5 Kidney failure <15 (or dialysis) 23 FASTING 10 HOUR 24 Desirable <150 Borderline high 150-199 High 200-499 Very High >500 25 Desirable <200 Borderline high 200-239 High >239 26 Low <40 Desirable: 40-60 High: >60 27 Desirable: <100 mg/dL Near Optimal: 100-129 mg/dL Borderline High: 130-159 mg/dL High: 160-189 mg/dL Very High: >189 mg/dL 28 RESULT: Ectocervical/Endocervical 29 For types 16, 18, 31, 33, 35, 39, 45, 51, 52, 56, 58, 59 and 68. Test Performed by: [facility] - [address] [address] Forest Economics Professor: Alvarez Recinos III, M.D. 30 RUN DATE: 03/15/13 [facility] LAB LIVE PAGE 1 RUN TIME: [address] [place] [address] Specimen Inquiry Name: CRISTIANA RAMSEY : [address]: Iman Cottrell NP Acct: [id number] Unit: [id number] AGE: 63 Location: [facility] Re03/14/13 SEX: F Status: REG REF SPEC: [id number] DOMI: 03/14/[address]: Iman Cottrell NP REQ: [id number] RECD: 03/14/13 STATUS: SOUT _ ORDERED: IMAGE ANALYSIS, PAP SM PATH REV, HPV/Thin Prep FINAL DIAGNOSIS Please Repeat COMMENTS: Specimen sent to [facility] [employer] in [place], [place] on 03/15/13 by [id number] at 1413. Results will be reported separately. [...] was evaluated with the assistance of the BlackwavePrep Test Imaging System. Due to cytologic findings at the fitting room checker microscope, comprehensive manual rescreening by a Auto Wrecker may be required. The Pap Smear is [...] performed at Main Lab DEPARTMENT OF PATHOLOGY, [facility] [address] [place], [place] [address] Royce Escamilla M.D. Director [facility] Permit #[id number] RUN DATE: 03/16/13 [facility] LAB LIVE PAGE 1 RUN TIME: [address] [facility] [address] [place], [place] [address] Specimen Inquiry Name: CRISTIANA RAMSEY : [address]: Iman Cottrell NP Acct: [id number] Unit: [id number] AGE: 63 Location: [facility] Re03/14/13 SEX: F Status: REG REF SPEC: [id number] DOMI: 03/14/[address]: Iman Cottrell NP REQ: [id number] RECD: 03/14/13 STATUS: COMP _ SOURCE: URINE SPDESC: ORDERED: Urine Culture QUERIES: Medent Number [id number] Procedure Result Verified Site Urine Culture Final 03/16/13- 1046 ML No Growth Day 2 (<1,000 CFU/mL) END OF REPORT * ML=Testing performed at Main Lab DEPARTMENT OF PATHOLOGY, [facility] [place] [place], [place] [address] Royce Escamilla M.D. Director [facility] Permit #[id number] RUN DATE: 11/27/12 [facility] LAB LIVE PAGE 1 RUN TIME: [address] [facility] [address] [place], [place] [address] Specimen Inquiry Name: CRISTIANA RAMSEY : [address]: Camilo Mclean MD Acct: [id number] Unit: [id number] AGE: 62 Location: [facility] Re11/23/12 SEX: F Status: REG REF SPEC: [id number] DOMI: 11/23/12- SUBM DR: Camilo Mclean MD REQ: [id number] RECD: 11/26/121444 STATUS: SHAYE ORTIZ DR: Jigar Ivey MD [...] at Main Lab DEPARTMENT OF PATHOLOGY, [address] [place] [address] Royce Escamilla M.D. Director [facility] Permit #[id number] CHOLESTEROL INTERPRETATION: Desirable: Less than 200 MG/DL Borderline-High Risk: 200-239 MG/DL High-Risk: 240 MG/DL and over 34 HDL INTERPRETATION: Undesirable: High Risk: Less than 40 MG/DL Desirable: Low Risk: Greater than 60 MG/DL 35 LDL INTERPRETATION: Low Risk Optimal Level: LDL Less than 100 MG/DL Near or Above Optimal: LDL 100-129 MG/DL Borderline High Risk: LDL 130-159 MG/DL High Risk: LDL 160-189 MG/DL Very High Risk: LDL Greater than 189 MG/DL 36 -- REFERENCE VALUE -- 25-HYDROXY D TOTAL (D2+D3) Optimum levels in the normal population are 25-80 Test Performed by: [facility] Dpt of Lab Med and Pathology [address] [place] [address] Forest [employer] Professor: Alvarez Recinos III, M.D. 37 CHOLESTEROL INTERPRETATION: Desirable: Less than 200 MG/DL Borderline-High Risk: 200-239 MG/DL High-Risk: 240 MG/DL and over 38 HDL INTERPRETATION: Undesirable: High Risk: Less than 40 MG/DL Desirable: Low Risk: Greater than 60 MG/DL 39 LDL INTERPRETATION: Low Risk Optimal Level: LDL Less than 100 MG/DL Near or Above Optimal: LDL 100-129 MG/DL Borderline High Risk: LDL 130-159 MG/DL High Risk: LDL 160-189 MG/DL Very High Risk: LDL Greater than 189 MG/DL 40 Anion gap measurement may be of limited value in the presence of any alkalosis, especially in a combined acid base disorder. . 41 Because ethnic data is not always readily [...] 15-29 5 Kidney failure <15 (or dialysis) 42 ---- RUN DATE: 10/29/10 [facility] NMI LIVE PAGE 1 RUN TIME: 1547 Specimen Inquiry RUN USER: INTERFACE -- Name: CRISTIANA RAMSEY Status: REG REF Re10/28/10 Age/Sex: 60/F Unit#: [id number] Location: [facility]. : [birth year] -- Specimen: [id number] [id number] Spec Date: 10/28/[address]: Iman shipman RN TRAINING Spec Type: CYTOLOGY Received: 10/29/10-1250 Copies to: [...] evaluated with the assistance of the ThinPrep Pap Test Imaging System. The Pap Smear [...] three years. Initial evaluation performed by González BENNETT(ASCP) 10/29/10 Final Interpretation electronically signed by: González BENNETT(ASCP) 10/29/10 1547 -- DEPARTMENT OF PATHOLOGY, [address] [place] [address] [facility] Permit #[id number] Royce Escamilla M.D. Director Neil Hunter M.D. Entry Level Recruiter Dir spike -- 43 FINAL INTERPRETATION: No HIV antibody is detected. . This information has been disclosed to you from confidential records which are protected by [facility] law. State law prohibits you from making further disclosure of this information without the specific written consent of the person to whom it pertains, or as otherwise permitted by law. Any unauthorized further disclosure in violation of state law may result in a fine or fci sentence or both. General authorization for the release of medical or other information is not, except in limited circumstances set forth in Part 63, Title 10, of [facility], sufficient authorization for further disclosure. Disclosure of confidential HIV information that occurs as the result of a general authorization for the release of medical or other information will be in violation of the state law and may result in a fine or a fci sentence. . 44 INTERPRETIVE GUIDELINES FOR VITAMIN D (25-HYDROXY): >100 [...] SIGNIFICANT RISK OF OSTEOMALACIA. TEST PERFORMED BY: [facility]. [address] [place] [address] NOTE: NEW REFERENCE RANGE OF 10/31/06 Procedures Date CPT Code Description Status 09/21/2017 Bone Mineral Density Test Completed 05/11/2017 95590 ECHO Transthorasic Realtime 2D W Doppler & Color Flow Completed [facility] 11/13/2015 Mammogram Completed 05/01/2015 11460 Nerve Conduction 03-04 Studies Completed 05/01/2015 80569 Needle Electromyography Each Extremity W/Related Completed Paraspinal Areas 10/08/2014 Bone Mineral Density Test Completed 10/08/2014 Mammogram Completed 05/13/2013 Mammogram Completed 11/23/2012 Colonoscopy Completed 11/04/2010 Bone Mineral Density Test Completed 11/04/2010 Mammogram Completed 04/29/2003 82079 Transesophageal Echocardiogram Completed 04/10/2003 73379 Stress Test Completed 04/09/2003 59121 Color Doppler Completed 04/09/2003 78028 Pulse Doppler & Continuous Wave Completed 04/09/2003 85469 Echocardiogram Completed Encounters Type Date Location Provider CPT E/M Dx Office Visit 09/06/2017 [facility] Mya Balderas M.D. 65799 R41.89 9:00a Services Of [facility] F41.9 R94.02 Office Visit 04/20/2017 1:40p [facility] Internal Medicine Jigar Ivey, [address] R41.3 - Leighton Price M.D.,FACP R01.1 Office Visit 02/14/2017 11:30a [facility] Internal Medicine Jigar Ivey, [address] Z00.01 - Anthony Valenzuela,FACP E78.2 M81.0 Z23 Office Visit 09/27/2016 4:40p [facility] Internal Medicine Jigar [place]Orly [place], [address] R53.83 - Anthony Valenzuela,[facility] R41.3 D47.2 Office Visit 06/17/2016 4:20p [facility] Internal Jigar [place], [address] M25.511 Medicine - [address] Nicolas,FACP H61.23 Office Visit 02/20/2015 8:40a [facility] Internal Jigar [place]Orly [place], [address] 356.8 Medicine - [address] Nicolas,FACP Office Visit 10/22/2014 10:10a [facility] Internal Jigar DOrly [place], [address] 088.81 Medicine - [address] Nicolas,FACP 733.00 Office Visit 03/14/2013 3:30p [facility] Internal Medicine Iman Cottrell, N.P. [address] V76.10 - Anthony 788.41 564.09 599.70 V72.31 V76.2 Office Visit 10/31/2012 2:00p [facility] Internal Negrita Littlejohn, [address] E906.4 Medicine - N.P. Anthony 910.4 Office Visit 01/20/2012 4:30p [facility] Internal Medicine Iman Cottrell, N.P. [address] V76.51 - [place] V77.91 V77.1 V06.1 719.48 Office Visit 11/12/2010 9:40a DO Not Use [employer] AT Jigar Ivey, [address] 733.00 Bailee Valenzuela,[facility] Office Visit 10/28/2010 2:30p DO Not Use [employer] AT Iman [place] [address] V76.2 Bailee V76.10 V76.51 V72.31 380.4 Office Visit 02/05/2008 10:00a DO Not Use [employer] AT [place], [address] 840.4 Bailee Valenzuela,FACP 268.9 Office Visit 04/30/2007 3:40p DO Not Use [employer] AT [place], [address] [phone] Bailee Valenzuela,[facility] [phone] Plan of Care Future Appointment(s):04/27/2018 10:00 am - Mya Balderas M.D. at [facility]12/11/2017 - Melina Villalpando M.D.[id number] Other superficial bite, unspecified lower leg, init encntrComments:use fran 160 mg once a day to help with swelling,itching use ice on the areaM85.89 Oth disrd of bone density and structure, multiple sites
[2017-12-12 20:09] VITALS: BP 127/70
[2017-12-12] MEDS ORDERED: Cephalexin CAP* 500 MG PO ONE (20:22)
--- NOTE | 2017-12-12 20:24 | ED ---
Skin Complaint - HPI Summary HPI Summary: 67-year-old female presents with spreading redness from a bug bite for the past 3 days. She states that she saw her primary yesterday and they told her to take Ysabel and placed ice on the area. She states that states she knows clear fluid from the area today after she place heat. States it feels better after she puts heat after she places heat on it. She also developed a low- grade fever today. She did not take anything for her fever. Redness has been spreading. She denies any itchiness. She denies any history of MRSA. She is not diabetic. - History of Current Complaint Hx Last Menstrual Period: post menopause Pain Intensity: 2 <Hui Luevano - Last Filed: 12/12/17 20:25> <Radha Austin - Last Filed: 12/12/17 20:47> - History of Current Complaint Chief Complaint: [facility] Time Seen by Provider: 12/12/17 20:15 Stated Complaint: BUG BITE ON LEG,FEVER - Allergy/Home Medications Allergies/Adverse Reactions: Allergies Allergy/AdvReac Type Severity Reaction Status Date / Time codeine Allergy unk Verified 09/10/17 09:15 PMH/Surg Hx/FS Hx/Imm Hx Endocrine/Hematology History: Denies: Hx Diabetes Cardiovascular History: Denies: Hx Hypertension, Hx Pacemaker/ICD Respiratory History: Denies: Hx Asthma History: Denies: Hx Renal Disease Musculoskeletal History: Reports: Hx Osteoporosis Sensory History: Denies: Hx Hearing Aid Psychiatric History: Denies: Hx Panic Disorder - Cancer History Hx Chemotherapy: No Hx Radiation Therapy: No - Surgical History Surgery Procedure, Year, and Place: spinal fusion for scoliosis 1965. RIGHT SIDE OF HEAD ABOVE EAR TO REMOVE BONE GROWTH. Infectious Disease History: No Infectious Disease History: Reports: Traveled Outside the [place] in Last 30 Days - Margot Denies: Hx Clostridium Difficile, Hx Hepatitis, Hx Human Immunodeficiency Virus (HIV), Hx of Known/Suspected MRSA, Hx Shingles, Hx Tuberculosis, Hx Known/ Suspected VRE, Hx Known/Suspected VRSA, History Other Infectious Disease - Family History Known Family History: Negative: Diabetes - Social History Alcohol Use: Weekly Substance Use Type: Reports: None Smoking Status (MU): Never Smoked Tobacco <Hui Luevano - Last Filed: 12/12/17 20:25> Review of Systems Positive: Fever Negative: Chest Pain Negative: Shortness Of Breath Positive: Rash All Other Systems Reviewed And Are Negative: Yes <Hui Luevano - Last Filed: 12/12/17 20:25> Physical Exam Triage Information Reviewed: Yes Vital Signs On Initial Exam: Initial Vitals Temp Pulse Resp BP Pulse Ox 99.5 F 86 16 127/70 97 12/12/17 20:03 12/12/17 20:03 12/12/17 20:03 12/12/17 20:03 12/12/17 20:03 Vital Signs Reviewed: Yes Appearance: Positive: Well-Appearing Skin: Positive: Warm, Dry, Other - 1 cm lesion with no loculation or fluctuance noted on left calf. 4 cm of surrounding erythema that is warm to the touch with some streaking down the leg. Head/Face: Positive: Normal Head/Face Inspection Eyes: Positive: Normal, Conjunctiva Clear ENT: Positive: Pharynx normal Respiratory/Lung Sounds: Positive: Clear to Auscultation, Breath Sounds Present Cardiovascular: Positive: Normal, RRR Musculoskeletal: Positive: Strength/ROM Intact - left leg, Other - good pulses Neurological: Positive: Normal Psychiatric: Positive: Normal <Hui Luevano - Last Filed: 12/12/17 20:25> Vital Signs On Initial Exam: Initial Vitals Temp Pulse Resp BP Pulse Ox 99.5 F 86 16 127/70 97 12/12/17 20:03 12/12/17 20:03 12/12/17 20:03 12/12/17 20:03 12/12/17 20:03 <Radha Austin - Last Filed: 12/12/17 20:47> Diagnostics - Vital Signs Vital Signs Temp Pulse Resp BP Pulse Ox 12/12/17 20:03 99.5 F 86 16 127/70 97 <Hui Luevano - Last Filed: 12/12/17 20:25> - Vital Signs Vital Signs Temp Pulse Resp BP Pulse Ox 12/12/17 20:03 99.5 F 86 16 127/70 97 <Radha Austin - Last Filed: 12/12/17 20:47> Course/Dx - Course Course Of Treatment: 67-year-old female presents with spreading redness from a bug bite for the past 3 days. She states that she saw her primary yesterday and they told her to take Ysabel and placed ice on the area. She states that states she knows clear fluid from the area today after she place heat. States it feels better after she puts heat after she places heat on it. She also developed a low-grade fever today. She did not take anything for her fever. Redness has been spreading. She denies any itchiness. She denies any history of MRSA. She is not diabetic. On exam has with history of a bite on the left leg with surrounding erythema and streaking that is why the touch. No abscess felt. Vitals are stable here. Will start on Keflex. Given first dose here. Told if fevers persist or redness spreads after 2 days to return to the ED or follow-up with primary. Patient understands and agrees with the plan. - Differential Diagnoses - Skin Complaint Differential Diagnoses: Abscess, Cellulitis, Contact Dermatitis <Hui Luevano - Last Filed: 12/12/17 20:25> <Radha Austin - Last Filed: 12/12/17 20:47> - Diagnoses Provider Diagnoses: Cellulitis of left leg Discharge - Sign-Out/Discharge Documenting (check all that apply): Discharge/Admit/Transfer - Billing Disposition and Condition Condition: GOOD Disposition: Home <Hui Luevano - Last Filed: 12/12/17 20:25> - Billing Disposition and Condition Condition: GOOD Disposition: Home <Radha Austin - Last Filed: 12/12/17 20:47> - Discharge Plan Condition: Good Disposition: HOME Prescriptions: Cephalexin CAP* [Keflex CAP*] 500 mg PO TID #29 cap Patient Education Materials: Cellulitis (ED) Referrals: Jigar Ivey MD [Primary Care Provider] - Additional Instructions: Take Keflex three times a day for 10 days Take tyenlol for pain or fever every [address] heat on the area elevate leg to reduce swelling Follow up with primary within 3 days Return to ED if develop fever, area of redness spreads after two days on antibiotics or any new or worsening symptoms Attestation Statement User Type: Provider - I was available for consult. This patient was seen by the PATITO. The patient was not presented to, seen by, or examined by me. -Jeffrey <Radha Austin - Last Filed: 12/12/17 20:47>
== END 2017-12-12 20:35 | disposition home or self-care (01) ==
LOC: UCEAST 19:55
DX: L03.116 Cellulitis of left lower limb (principal); Z88.5 Allergy status to narcotic agent
CPT/HCPCS: 99212; A9270-GY; G0463

== ENCOUNTER 2017-12-16 08:22 | Emergency (ER) | payer MEDICARE ==
[2017-12-16 08:39] VITALS: BP 131/74
--- NOTE | 2017-12-16 09:00 | UC ---
Roselyn Hutchins Jade, scribed for Power Walker MD on 12/16/17 at 0851 . Skin Complaint HPI - HPI Summary HPI Summary: Patient is a 67 y/o female who presents to [facility] c/o worsening rash. She is currently being treated for cellulitis on her left leg after being bitten by an insect 1 week ago. She has been taking Keflex for 3 and a half days. The symptoms have now worsened, and the patient now has an erythematous area on her left thigh going into her pelvis. Patient denies any itchiness. - History of Current Complaint Stated Complaint: RASH Hx Obtained From: Patient Hx Last Menstrual Period: post menopause Onset/Duration: Gradual Onset, Lasting Days - 1 week ago, Worse Since Timing: Constant Current Severity: None Pain Intensity: 0 Pain Scale Used: 0-10 Numeric Location: Other - Left leg Character: Redness Aggravating Factor(s): Nothing Alleviating Factor(s): Nothing Related History: Insect Bite/Sting - Bite - Allergy/Home Medications Allergies/Adverse Reactions: Allergies Allergy/AdvReac Type Severity Reaction Status Date / Time codeine Allergy unk Verified 09/10/17 09:15 Review of Systems Constitutional: Negative - Fever Skin: Rash, Other - NEGATIVE: itchiness All Other Systems Reviewed And Are Negative: Yes PMH/Surg Hx/FS Hx/Imm Hx Endocrine History: Other Other Endocrine History: NEGATIVE: diabetes Cardiovascular History: Other Other Cardiovascular History: NEGATIVE: HTN Respiratory History: Other Other Respiratory History: NEGATIVE: asthma - Surgical History Surgical History: Yes Surgery Procedure, Year, and Place: spinal fusion for scoliosis 1965. RIGHT SIDE OF HEAD ABOVE EAR TO REMOVE BONE GROWTH. - Family History Known Family History: Negative: Diabetes - Social History Alcohol Use: Weekly Substance Use Type: None Smoking Status (MU): Never Smoked Tobacco Physical Exam - Summary Physical Exam Summary: VITAL SIGNS: Reviewed. GENERAL: Patient is a well-developed and nourished FEMALE who is lying comfortable in the stretcher. Patient is not in any acute respiratory distress. HEAD AND FACE: Normocephalic EYES: PERRLA, EOMI x 2. EARS: Hearing grossly intact. MOUTH: Oropharynx within normal limits. NECK: Supple, trachea is midline, no adenopathy, no JVD, no carotid bruit. CHEST: Symmetric, no tenderness at palpation LUNGS: Clear to auscultation bilaterally. No wheezing or crackles. CVS: Regular rate and rhythm, S1 and S2 present, no murmurs or gallops appreciated. ABDOMEN: Soft, non-tender. Bowel sounds are normal. No abdominal abnormal pulsations. EXTREMITIES: Full ROM in all major joints, no edema, no cyanosis or clubbing. NEURO: Alert and oriented x 3. No acute neurological deficits. Speech is normal and follows commands. SKIN: Dry and warm. Erythematous area on left leg approximately 4 x 4 cm. Erythematous area from left thigh going to pelvis, approximately 10 x 10 cm. No tenderness to palpation. Good pulses and capillary refill in LE. Triage Information Reviewed: Yes Vital Signs: Initial Vital Signs Temp 97.6 F 12/16/17 08:36 Pulse 66 12/16/17 08:36 Resp 14 12/16/17 08:36 BP 131/74 12/16/17 08:36 Pulse Ox 100 12/16/17 08:36 Vital Signs Reviewed: Yes Course/Dx - Course Course Of Treatment: The patient presents with a worsening cellulitis despite taking Keflex. Therefore she is failing to by mouth antibiotics. Therefore the patient would benefit from the work and further assessment. The patient was discharged to the emergency department for further workup and management. The patient declined ambulance transfer. - Diagnoses Provider Diagnoses: Worsening cellulitis. Cellulitis failing to PO antibiotics. Discharge - Sign-Out/Discharge Documenting (check all that apply): Discharge/Admit/Transfer - Discharge Plan Condition: Stable Disposition: HOME Patient Education Materials: Cellulitis (ED) Referrals: Jigar Ivey MD [Primary Care Provider] - Additional Instructions: Patient is discharged to the emergency department for further workup and management. The patient declined ambulance transport. - Billing Disposition and Condition Condition: STABLE Disposition: Home The documentation as recorded by the Rsoelyn schilling Jade accurately reflects the service I personally performed and the decisions made by , Power Walker MD.
== END 2017-12-16 08:54 | disposition home or self-care (01) ==
LOC: UCEAST 08:22
DX: L03.116 Cellulitis of left lower limb (principal); W57.XXXD Bitten or stung by nonvenomous insect and other nonvenomous arthropods, subsequent encounter; Z88.5 Allergy status to narcotic agent
CPT/HCPCS: 99211; G0463

== ENCOUNTER 2017-12-16 09:16 | Emergency (ER) | payer MEDICARE ==
[2017-12-16] MEDS ORDERED: NS 0.9% 1000 ML* 1,000 ML IV ONE (09:37)
[2017-12-16 10:02] LABS: ABS Basophils 0 10^3/ul (0-0.2); ABS Eosinophils 0 10^3/ul (0-0.6); ABS Lymphocytes 1.8 10^3/ul (1.0-4.8); ABS Monocytes 0.6 10^3/ul (0-0.8); ABS Neutrophils 4.2 10^3/ul (1.5-7.7); ABS Nucleated RBC 0 10^3/ul; Eosinophil % 0.7 % (0-6); Hematocrit 40 % (35-47); Hemoglobin 13.6 g/dl (12.0-16.0); Lymphocyte % 26.7 % (25-47); Mean Corpuscular HGB Conc 34 g/dl (31-36); Mean Corpuscular Hemoglobin 30 pg (27-31); Mean Corpuscular Volume 87 fL (80-97); Mean Platelet Volume 7.4 um3 (7.4-10.4); Nucleated Red Blood Cells % 0; Platelet Count 320 10^3/ul (150-450); Red Blood Count 4.57 10^6/ul (4.00-5.40); Red Cell Distribution Width 13 % (10.5-15); White Blood Count 6.7 10^3/ul (3.5-10.8)
[2017-12-16 10:19] LABS: EGFR Non-African American 107.7 (>60)
[2017-12-16 10:20] LABS: INR 0.93 (0.77-1.02)
[2017-12-16 11:24] VITALS: BP 132/77
--- NOTE | 2017-12-16 12:24 | ED ---
Liset, AtteberyJoss, scribed for Ritchie Leger MD on 12/16/17 at 1045 . Bite Injury/Animal - HPI Summary HPI Summary: Pt is a 67 y/o F presenting due to concerns of infection of bug bite injury to left lateral lower leg. Pt noticed erythema from suprapubic region up to the lower A/P region which caused her visit to the ED. Rash is alleviated by hot water from shower. Associated Sx's: Fever (101 at home, on arrival 98.1), fatigue. Pt denies abd pain, rash pain/itchiness, bowel changes. Pt notes that she felt ill in the early stages following the bite. Denies any relevant PMHx including MRSA. She was seen at Monday (4 days) and placed on Keflex 500 mg BID and seen there again earlier today, referred to ED. - History of Current Complaint Chief Complaint: EDExtremityLower Stated Complaint: INFECTION LEFT LEG Time Seen by Provider: 12/16/17 09:36 Hx Obtained From: Patient Hx Last Menstrual Period: post menopause Onset of Injury: Happened days ago - Rash - Monday (4 days), Still Present Severity Currently: None Pain Intensity: 0 Pain Scale Used: 0-10 Numeric Aggravating Factor(s): Nothing Alleviating Factor(s): Other - Hot shower water Associated Signs And Symptoms: Positive: Fever - Allergies/Home Medications Allergies/Adverse Reactions: Allergies Allergy/AdvReac Type Severity Reaction Status Date / Time codeine Allergy See Comment Verified 12/16/17 09:32 PMH/Surg Hx/FS Hx/Imm Hx Endocrine/Hematology History: Denies: Hx Diabetes, Hx Thyroid Disease Cardiovascular History: Denies: Hx Hypertension, Hx Pacemaker/ICD Respiratory History: Denies: Hx Asthma, Hx Chronic Obstructive Pulmonary Disease (COPD) GI History: Denies: Hx Ulcer History: Denies: Hx Renal Disease Musculoskeletal History: Reports: Hx Osteoporosis Sensory History: Denies: Hx Hearing Aid Psychiatric History: Denies: Hx Panic Disorder - Cancer History Hx Chemotherapy: No Hx Radiation Therapy: No - Surgical History Surgery Procedure, Year, and Place: spinal fusion for scoliosis 1965. RIGHT SIDE OF HEAD ABOVE EAR TO REMOVE BONE GROWTH. Infectious Disease History: No Infectious Disease History: Reports: Traveled Outside the [place] in Last 30 Days - Margot Denies: Hx Clostridium Difficile, Hx Hepatitis, Hx Human Immunodeficiency Virus (HIV), Hx of Known/Suspected MRSA, Hx Shingles, Hx Tuberculosis, Hx Known/ Suspected VRE, Hx Known/Suspected VRSA, History Other Infectious Disease - Family History Known Family History: Negative: Diabetes - Social History Occupation: Retired Lives: With Family Alcohol Use: Weekly Substance Use Type: Reports: None Smoking Status (MU): Never Smoked Tobacco Review of Systems Positive: Fever - subjective - 101, Fatigue Negative: Abdominal Pain - suprapubic Positive: Rash - suprapubic area - see PE All Other Systems Reviewed And Are Negative: Yes Physical Exam - Summary Physical Exam Summary: General: well-appearing, no pain distress Skin: warm, color reflects adequate perfusion, dry, 12 cm in diameter erythematous and flat region on the lateral aspect of the left upper calf with a scab in the middle and no drainage; erythema in the left inguinal area 8 cm in width Head: normal Eyes: EOMI, NAKIA ENT: normal Neck: supple, nontender Respiratory: CTA, breath sounds present Cardiovascular: RRR Abdomen: soft, nontender Bowel: present Musculoskeletal: knee is not swollen or erythematous and has no streaking; strength/ROM intact Neurological: sensory/motor intact, A&O x3 Psychological: affect/mood appropriate Triage Information Reviewed: Yes Vital Signs On Initial Exam: Initial Vitals Temp Pulse Resp BP Pulse Ox 98.1 F 66 16 126/70 97 12/16/17 09:26 12/16/17 09:26 12/16/17 09:26 12/16/17 09:26 12/16/17 09:26 Vital Signs Reviewed: Yes Diagnostics - Vital Signs Vital Signs Temp Pulse Resp BP Pulse Ox 12/16/17 09:55 97 12/16/17 09:51 71 130/69 96 12/16/17 09:26 98.1 F 66 16 126/70 97 - Laboratory Lab Results: Lab Results 12/16/17 Range/Units 09:49 WBC 6.7 (3.5-10.8) 10^3/ul RBC 4.57 (4.00-5.40) 10^6/ul Hgb 13.6 (12.0-16.0) g/dl Hct 40 (35-47) % MCV 87 (80-97) fL MCH 30 (27-31) pg MCHC 34 (31-36) g/dl RDW 13 (10.5-15) % Plt Count 320 (150-450) 10^3/ul MPV 7.4 (7.4-10.4) um3 Neut % (Auto) 63.2 (38-83) % Lymph % (Auto) 26.7 (25-47) % Hanson % (Auto) 8.8 H (0-7) % Eos % (Auto) 0.7 (0-6) % Baso % (Auto) 0.6 (0-2) % Absolute Neuts (auto) 4.2 (1.5-7.7) 10^3/ul Absolute Lymphs (auto) 1.8 (1.0-4.8) 10^3/ul Absolute Monos (auto) 0.6 (0-0.8) 10^3/ul Absolute Eos (auto) 0 (0-0.6) 10^3/ul Absolute Basos (auto) 0 (0-0.2) 10^3/ul Absolute Nucleated RBC 0 10^3/ul Nucleated RBC % 0 Result Diagrams: 12/16/17 09:49 12/16/17 09:49 Lab Statement: Any lab studies that have been ordered have been reviewed, and results considered in the medical decision making process. Re-Evaluation - Re-Evaluation First Eval Re-Evaluation Time: 11:25 Change: Unchanged Comment: Discussed results and treatment with pt Bite Injury Course/Dx - Course Course Of Treatment: DR IBRAHIM, HOSPITALIST, ALSO EXAMINED THE PATIENT. IT APPEARS THE INGUINAL RASH MAY BE A REACTION TO THE KEFLEX. WBC NORMAL. WILL CHANGE ABX TO COVER MRSA WITH DOXYCYCLINE. F/U PMD; RETURN TO ED IF WORSE. Assessment/Plan: Medications reviewed; allergies noted. - Diagnoses Provider Diagnosis: Cellulitis of leg, left Discharge - Sign-Out/Discharge Documenting (check all that apply): Discharge/Admit/Transfer - D/C - Discharge Plan Condition: Stable Disposition: HOME Prescriptions: DOXYcycline CAP(*) [DOXYcycline 100MG CAP(*)] 100 mg PO BID #28 cap Patient Education Materials: Cellulitis (ED) Referrals: Jigar Ivey MD [Primary Care Provider] - Additional Instructions: FOLLOW UP WITH YOUR DOCTOR. RETURN TO THE EMERGENCY DEPARTMENT FOR ANY WORSENING OF YOUR CONDITION; SPREAD OF INFECTION, YOU FEEL ILL OR QUESTIONS OR CONCERNS. - Billing Disposition and Condition Condition: STABLE Disposition: Home The documentation as recorded by the Elder schilling Michael accurately reflects the service I personally performed and the decisions made by me, Ritchie Leger MD.
== END 2017-12-16 11:36 | disposition home or self-care (01) ==
LOC: ED 09:16
DX: L03.116 Cellulitis of left lower limb (principal); R50.9 Fever, unspecified; R21 Rash and other nonspecific skin eruption; R53.83 Other fatigue; Z87.310 Personal history of (healed) osteoporosis fracture; W57.XXXD Bitten or stung by nonvenomous insect and other nonvenomous arthropods, subsequent encounter; Z88.5 Allergy status to narcotic agent
CPT/HCPCS: 36415; 80053; 83605; 85025; 85610; 85730; 86140; 87040; 99283